=== PATIENT | male | born 1960 | race Caucasian/White ===

== ENCOUNTER 2024-04-04 09:16 | Inpatient (IN) | payer OTHER ==
[~2024-04-04] VITALS: Ht 177.8 cm; Wt 123.0 kg
--- NOTE | 2024-04-04 09:48 | ED.PDOC ---
GI ASSESSMENT HPI Comments 63 year old male brought in by neighbor presents to the ED with chief complaint of abdominal pain and SOB. Patient reports that he has been experiencing diffuse, 10/10 abdominal pain with associated abdominal distention and SOB with exertion for the past month along with nausea and vomiting since yesterday. Patient relays that he has not been seen by a PCP in over a year. Patient states he is currently not able to pass gas. Neighbor notes that the patient called her for help this morning, prompting her to take the patient to the ED for further evaluation. Patient denies any chest pain, dizziness, diarrhea, headache, fever, or chills. Chief Complaint: Shortness of Breath Time Seen by MD: 09:42 Reviewed Notes: Nurses Notes, Medications, Allergies Allergies: Coded Allergies: NO KNOWN ALLERGIES (Unverified , 04/04/24) Information Source: Patient, Friend Mode of Arrival: Ambulatory Timing: Months Duration: Since onset Prehospital treatment: None Quality: Sharp Vomitus: Watery Stool: Normal Severity: Moderate Recent: None Recent Hx of: None Pain Location: Diffuse Modifying Factors: Nothing Associated sign and symptoms: Nausea, Vomiting, Abdominal Pain, Other (SOB) Past Medical History PAST MEDICAL HISTORY: HTN, [place] Surgical History: Denies all surgeries Family History Family History: Reviewed,noncontributory to illness Social History Smoker: Non-Smoker, Quit Greater Than 1 Year Alcohol: Denies ETOH Use Drugs: Denies Drug Use Lives In: Home Constitutional: denies: chills, diaphoresis, fatigue, fever, malaise, sweats, weakness, others EENTM: denies: blurred vision, double vision, ear bleeding, ear discharge, ear drainage, ear pain, ear ringing, eye pain, eye redness, hearing loss, mouth pain, mouth swelling, nasal discharge, nose bleeding, nose congestion, nose pain, photophobia, tearing, throat pain, throat swelling, voice changes, others Respiratory: reports: SOB with excertion; denies: cough, hemoptysis, orthopnea, SOB at rest, shortness of breath, stridor, wheezing, others Cardiovascular: denies: chest pain, dizzy spells, diaphoresis, Dyspnea on exertion, edema, irregular heart beat, left arm pain, lightheadedness, palpitations, PND, syncope, others Gastrointestinal: reports: abdomen distended, abdominal pain, nausea, vomiting; denies: blood streaked bowels, constipated, diarrhea, dysphagia, difficulty swallowing, hematemesis, melena, poor appetite, poor fluid intake, rectal bleeding, rectal pain, others Genitourinary: denies: burning, dysuria, flank pain, frequency, hematuria, incontinence, penile discharge, penile sore, pain, testicle pain, testicle swelling, urgency, others Neurological: denies: dizziness, fainting, headache, left sided numbness, left sided weakness, numbness, paresthesia, pre-existing deficit, right sided numbness, right sided weakness, seizure, speech problems, tingling, tremors, weakness, others Musculoskeletal: denies: back pain, gout, joint pain, joint swelling, muscle pain, muscle stiffness, neck pain, others Integumetry: denies: bruises, change in color, change in hair/nails, dryness, laceration, lesions, lumps, rash, wounds, others Allergic/Immunocompromised: denies: Difficulty Healing, Frequent Infections, Hives, Itching, others Hematologic/Lymphatic: denies: anemia, blood clots, easy bleeding, easy bruising, swollen glands, others Endocrine: denies: excessive hunger, excessive sweating, excessive thirst, excessive urination, flushing, intolerance to cold, intolerance to heat, unexplained weight gain, unexplained weight loss, others Psychiatric: denies: anxiety, bipolar disorder, depression, hopeless, panic disorder, schizophrenia, sleepless, suicidal, others All Other Systems: Reviewed and Negative Physical Exam General Appearance: Moderate Distress, Normal HEENT: Normal ENT Inspection, PERRL/EOMI Neck: Full Range of Motion, Non-Tender, Normal, Normal Inspection Respiratory: Accessory Muscle Use, Chest Non-Tender, Other (Coarse breath sounds) Cardiovascular: Irregular, No Edema, No JVD, No Murmur, No Gallop, Normal Peripheral Pulses, Tachycardia Breast Exam: Deferred Gastrointestinal: No Organomegaly, Non Tender, No Pulsatile Mass, Normal Bowel Sounds, Soft Genitalia: Deferred Pelvic: Deferred Rectal: Deferred Extremities: No calf tenderness, Normal capillary refill, Normal inspection, Normal range of motion, Non-tender, No pedal edema Musculoskeletal : Apperance: Normal Neurologic: Alert, network solutions architect II-XII nml as Tested, No Motor Deficits, Normal Affect, Normal Mood, No Sensory Deficits Cerebellar Function: NOT DONE Reflexes: NOT DONE Skin: Dry, Normal Color, Warm Peripheral Pulses: 3+ Radial (R), 3+ Radial (L) Lymphatic: No Adenopathy Was a procedure done? Was a procedure done?: No GI differential Dx Differential Diagnosis: Constipation, Diverticular disease, Esophagitis, Gastritis/PUD, Gastroenteritis X-Ray, Labs, Meds, VS Vital Signs Date Time Temp Pulse Resp B/P (MAP) Pulse Ox O2 Delivery O2 Flow Rate FiO2 04/04/24 12:45 138 32 141/85 (103) 98 04/04/24 12:31 160/80 04/04/24 12:00 150 04/04/24 10:45 98.1 142 28 160/81 (107) 98 98.1 04/04/24 09:41 142 04/04/24 09:23 97.7 69 28 147/100 (116) 83 Lab Test 04/04/24 12:39 04/04/24 11:49 04/04/24 10:47 Range/Units Blood Gas Specimen Type Arterial Blood Gas Sample Site Right radial Blood Gas Patient Temperature 37.0 Arterial Blood Date Drawn [id number] Arterial Blood pH 7.483 H 7.350-7.450 Arterial Blood Partial Pressure CO2 21.9 L 35.0-48.0 mmHg Arterial Blood Partial Pressure O2 69.9 L 83.0-108.0 mmHg Arterial Blood HCO3 16.1 L 21.0-28.0 mmol/L Arterial Blood Oxygen Saturation 93.9 L 94.0-98.0 % Arterial Blood Base Excess -4.4 L -2.0-3.0 mmol/L Arterial Blood Oxyhemoglobin 93.1 L 94.0-98.0 % Arterial Blood Carboxyhemoglobin 0.3 L 0.5-1.5 % Arterial Blood Methemoglobin 0.6 0.0-1.5 % Jairo Test Yes Blood Gas Total Hemoglobin 18.60 *H 13.5-17.5 g/dL Blood Gas Liter Flow 4.00 Blood Gas Modality Nasal cannula FiO2 % 36.0 Blood Gas Critical Value Read Back yes Blood Gas Notified Whom héctor nolasco md Blood Gas Notified Time [id number] Blood Gas Notified By mone chow rrt White Blood Count 20.5 H 4.4-10.8 10^3/uL Red Blood Count 5.90 4.5-5.90 10^6/uL Hemoglobin 17.7 H 13.5-17.5 g/dL Hematocrit 54.0 H 41.0-53.0 % Mean Corpuscular Volume 91.4 80.0-100.0 fL Mean Corpuscular Hemoglobin 30.0 28.0-32.0 pg Mean Corpuscular Hemoglobin Concent 32.8 32.0-36.0 g/dL Red Cell Distribution Width 14.7 H 11.8-14.3 % Platelet Count 211 140-450 10^3/uL Mean Platelet Volume 9.5 6.9-10.8 fL Neutrophils (%) (Auto) 37.0-80.0 % Lymphocytes (%) (Auto) 10.0-50.0 % Monocytes (%) (Auto) 0.0-12.0 % Basophils (%) (Auto) 0.0-2.0 % Neutrophils # (Auto) 1.6-8.6 10 ^3/uL Lymphocytes # (Auto) 0.4-5.4 10 ^3/uL Monocytes # (Auto) 0-1.3 10 ^3/uL Differential Total Cells Counted 100.0 100 Neutrophils % (Manual) 89 H 37.0-80.0 Band Neutrophils % (Manual) 0 Lymphocytes % (Manual) 3 L 10.0-50.0 Monocytes % (Manual) 8 0-12 Eosinophils % (Manual) 0 0-7 Basophils % (Manual) 0 0.0-2.0 Metamyelocytes % (manual) 0 Myelocytes % (Manual) 0 Promyelocytes % (Manual) 0 Blast Cells % (Manual) 0 Reactive Lymphocytes 0 Platelet Estimate Adequate B-Type Natriuretic Peptide 707.21 0-100 pg/mL Prothrombin Time Pending Prothrombin Time INR Pending Sodium Level 130 L 136-145 mmol/L Potassium Level 4.1 3.5-5.1 mmol/L Chloride Level 93 L 98-107 mmol/L Carbon Dioxide Level 16 L 20-31 mmol/L Anion Gap 21 H 5-15 Blood Urea Nitrogen 76 H 9-23 mg/dL Creatinine 3.97 H 0.700-1.30 mg/dL Glomerular Filtration Rate Calc 16 >90 mL/min BUN/Creatinine Ratio 19.1 10.0-20.0 Serum Glucose 177 H 74-106 mg/dL Calcium Level 9.5 8.7-10.4 mg/dL Total Bilirubin 1.1 H 0.2-1.0 mg/dL Troponin I High Sensitivity 291 *H </=54 ng/L Lipase 27 12-53 U/L Current Medications Medications (Trade) Dose Ordered Sig/Michael Route Start Time Stop Time Status Last Admin Furosemide (Lasix Injection) 40 mg ONCE ONCE IV 04/04/24 12:15 04/04/24 12:16 DC 04/04/24 12:31 Enoxaparin Sodium (Lovenox) 120 mg ONCE ONCE SC 04/04/24 12:30 04/04/24 12:31 DC 04/04/24 12:48 Patient alert. Came in because of abdominal pain shortness a breath. Irregular increased heart rate. Placed on oxygen. Using accessory muscles. EKG reviewed does show atrial fibrillation. Blood pressure elevated. He does not take care himself. Started amiodarone. Possible pneumonitis. Possible CHF. Explained to the patient. Continue cardiac monitoring. Gaston approved inpatient admission [id number]. Time of 1ST Reevaluation: 10:42 Reevaluation 1ST: Unchanged Patient Education/Counseling: Diagnosis, Treatment Family Education/Counseling: Diagnosis, Treatment Additional Information I reviewed the following notes from patient's past medical encounters: None The following tests were ordered, and results were reviewed by me: CBC, BMP, BNP, Troponin, UA, Lipase, Bilirubin, Chest XR I reviewed and agreed with the following test results read by other providers: Chest XR Additional Information was gathered from interviewing the following independent historians: Neighbor I discussed treatment and results with medical personnel and neighbor. Departure 1 Departure Time of Disposition: 10:04 Impression: Primary Impression: Atrial fibrillation with RVR Additional Impressions: Pneumonitis Diastolic heart failure Qualified Codes: I50.33 - Acute on chronic diastolic (congestive) heart failure Disposition: ADMITTED INPATIENT Admit to: Med Surg Condition: Guarded Critical Care Note Critical Care Time?: Yes (90 min-critical care time only) Critical care comment: Placed on oxygen Stability Stability form required: No Heart Score Heart Score: Heart Score Response (Comments) Value History Slightly Suspicious 0 EKG Normal 0 Age 45-64 1 Risk Factors >3 or Hx ASHD 2 Troponin >3 x's Normal limit 2 Total 5 I personally scribed for RUBIA NOLASCO MD ([email or web address]) on 04/04/24 at 09:48. Electronically submitted by Raymond Moreno ([email or web address]). RUBIA NOLASCO MD Apr 04, 2024 09:48
--- NOTE | 2024-04-04 10:09 | ECG ---
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
[2024-04-04 10:45] VITALS: TEMP 98.1
--- NOTE | 2024-04-04 10:54 | DVH ---
CHEST RADIOGRAPH Indication: sob Technique: Single frontal view of the chest was obtained COMPARISON: None FINDINGS: Lines and Tubes: None Lungs: Clear Pleura: No effusion. No pneumothorax. Cardiomediastinal contours: Cardiomegaly Bones: Unremarkable IMPRESSION: Cardiomegaly
[2024-04-04 11:24] LABS: Anion Gap 21 (5-15); Potassium 4.1 mmol/L (3.5-5.1)
[2024-04-04 11:25] LABS: Calcium 9.5 mg/dL (8.7-10.4)
[2024-04-04 11:30] LABS: BUN/Creatinine Ratio 19.1 (10.0-20.0); Lipase 27 U/L (12-53)
[2024-04-04 11:32] LABS: Bilirubin, Total 1.1 mg/dL (0.2-1.0)
[2024-04-04 11:37] LABS: Blood Urea Nitrogen 76 mg/dL (9-23); Carbon Dioxide 16 mmol/L (20-31); Chloride 93 mmol/L (98-107); Glucose 177 mg/dL (74-106); Sodium 130 mmol/L (136-145)
[2024-04-04 12:20] LABS: Hemoglobin 17.7 g/dL (13.5-17.5); Mean Corpuscular Hgb Conc. 32.8 g/dL (32.0-36.0); Mean Corpuscular Volume 91.4 fL (80.0-100.0); Platelet Count (auto) 211 10^3/uL (140-450); Red Cell Distribution Width 14.7 % (11.8-14.3); White Blood Cell 20.5 10^3/uL (4.4-10.8)
[2024-04-04 12:23] LABS: Band Neutrophils % (manual) 0; Basophils % (manual) 0 (0.0-2.0); Blast Cells 0; Eosinophils % (manual) 0 (0-7); Metamyelocytes % 0; Myelocytes % 0; Promyelocytes % 0; Reactive Lymphocytes 0
[2024-04-04] MEDS: FUROSEMIDE 40 MG/4 ML VIAL IV ONE (12:31)
[2024-04-04 12:43] LABS: Base Excess -4.4 mmol/L (-2.0-3.0)
[2024-04-04] MEDS: ENOXAPARIN SOD 120 MG/0.8 ML SYRINGE SC ONE (12:48)
[2024-04-04 12:51] LABS: Lymphocytes % (manual) 3 (10.0-50.0); Monocytes % (manual) 8 (0-12); Platelet Estimate Adequate
[2024-04-04 12:57] VITALS: PULSE 142
[2024-04-04] MEDS ORDERED: MORPHINE SULFATE INJ 2 MG/ml SYRG IV PRN (13:00)
[2024-04-04] MEDS ORDERED: ONDANSETRON HCL 4 MG/2 ML VIAL IV PRN (13:00)
[2024-04-04] MEDS ORDERED: ACETAMINOPHEN 325 MG TAB PO PRN (13:00)
[2024-04-04] MEDS ORDERED: DOCUSATE SOD 100 MG CAP PO PRN (13:00)
[2024-04-04] MEDS ORDERED: HYDROcodone-ACET 5/325MG TAB PO PRN (13:00)
[2024-04-04] MEDS ORDERED: NITROGLYCERIN 0.4 MG SL TAB SL PRN (13:00)
--- NOTE | 2024-04-04 13:16 | DVHHP2 ---
History of Present Illness Reason for Visit: Shortness of breath and abdominal pain History of Present Illness Jim Brantley is a 63-year-old male with past medical history of hypertension and PR, who came in for shortness of breath and abdominal pain. Patient states that he began having abdominal pain and kidney pain last week. His pain was continuing to worsen, he began having nausea, vomiting, and shortness of breath leading him to come to the ER. Patient states he had an PR last year, did not get a stent, was placed on hypertensive medications and sent home. He states he took the medications until they ran out then figured he was good. 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 In ER patient was noted to be in atrial fibrillation with RVR, he is tachypneic, using accessory muscles, and complaining of abdominal pain. CT abdomen was competed and showed patient has a perforated bowel. STAT surgical consult placed. Cardiovascular: HTN, PR Past Surgical History: None Family History: None Smoke: No ALCOHOL: none Drugs: None Lives: Alone Review of Systems Constitutional: No: Fever, Chills, Sweats, Weakness, Malaise, Other Eyes: No: Pain, Vision change, Conjunctivae inflammation, Eyelid inflammation, Other, Redness ENT: No: Ear pain, Ear discharge, Nose pain, Nose discharge, Nose congestion, Mouth pain, Mouth swelling, Throat pain, Throat swelling, Other Respiratory: Shortness of breath, SOB with excertion; No: Cough, Dry, Wheezing, Hemoptysis, Pleuritic Pain, Sputum, Wheezing, Other Cardiovascular: No: Chest Pain, Palpitations, Orthopnea, Paroxysmal Noc. Dyspnea, Edema, Lt Headedness, Other Gastrointestinal: Nausea, Vomiting, Abdominal Pain; No: Diarrhea, Constipation, Melena, Hematochezia, Other Genitourinary: No Dysuria, No Frequency, No Incontinence, No Hematuria, No Retention, No Other Musculoskeletal: No: other, neck pain, shoulder pain, arm pain, back pain, hand pain, leg pain, foot pain Skin: No: Rash, Lesions, Jaundice, Bruising, Other Neurological: No: Weakness, Numbness, Incoordination, Change in speech, Confusion, Seizures, Other Allergies: Coded Allergies: NO KNOWN ALLERGIES (Unverified , 04/04/24) Medications Current Medications Medications Dose Ordered Sig/Michael Route Start Time Stop Time Status Last Admin Dose Admin Sodium Chloride 10 ml Q8HR IV 04/04/24 14:00 UNV Acetaminophen/ Hydrocodone Bitart 1 tab Q4HP PRN PO 04/04/24 13:00 UNV Ondansetron HCl 4 mg Q4HP PRN IV 04/04/24 13:00 UNV Docusate Sodium 100 mg BIDPRN PRN PO 04/04/24 13:00 UNV Acetaminophen 650 mg Q6HP PRN PO 04/04/24 13:00 UNV Nitroglycerin 0.4 mg Q5MINP PRN SL 04/04/24 13:00 UNV Morphine Sulfate 2 mg Q30M PRN IV 04/04/24 13:00 UNV Exam Vital Signs Vital Signs Date Time Temp Pulse Resp B/P (MAP) Pulse Ox O2 Delivery O2 Flow Rate FiO2 04/04/24 12:31 160/80 04/04/24 12:00 150 04/04/24 10:45 98.1 28 98 98.1 General Appearance: Alert, Oriented X3, Cooperative, moderate distress HEENT: Atraumatic, PERRLA Respiratory: Other (Tachypneic, using accessory muscles) Cardiovascular: No murmurs, Other (A-Fib with RVR) Abdominal: Normal bowel sounds, Soft Extremities: No clubbing, No cyanosis, No edema, Normal pulses Skin: No rashes, No breakdown, No significant lesion Neuro: Normal gait, Normal speech, Strength at 5/5 X4 ext Psych/Mental Status: Mental status NL, Mood NL Labs/Xrays Labs Test 04/04/24 12:39 04/04/24 11:49 04/04/24 10:47 Range/Units Blood Gas Specimen Type Arterial Blood Gas Sample Site Right radial Blood Gas Patient Temperature 37.0 Arterial Blood Date Drawn [id number] Arterial Blood pH 7.483 H 7.350-7.450 Arterial Blood Partial Pressure CO2 21.9 L 35.0-48.0 mmHg Arterial Blood Partial Pressure O2 69.9 L 83.0-108.0 mmHg Arterial Blood HCO3 16.1 L 21.0-28.0 mmol/L Arterial Blood Oxygen Saturation 93.9 L 94.0-98.0 % Arterial Blood Base Excess -4.4 L -2.0-3.0 mmol/L Arterial Blood Oxyhemoglobin 93.1 L 94.0-98.0 % Arterial Blood Carboxyhemoglobin 0.3 L 0.5-1.5 % Arterial Blood Methemoglobin 0.6 0.0-1.5 % Jairo Test Yes Blood Gas Total Hemoglobin 18.60 *H 13.5-17.5 g/dL Blood Gas Liter Flow 4.00 Blood Gas Modality Nasal cannula FiO2 % 36.0 Blood Gas Critical Value Read Back yes Blood Gas Notified Whom héctor nolasco md Blood Gas Notified Time [id number] Blood Gas Notified By mone chow rrt White Blood Count 20.5 H 4.4-10.8 10^3/uL Red Blood Count 5.90 4.5-5.90 10^6/uL Hemoglobin 17.7 H 13.5-17.5 g/dL Hematocrit 54.0 H 41.0-53.0 % Mean Corpuscular Volume 91.4 80.0-100.0 fL Mean Corpuscular Hemoglobin 30.0 28.0-32.0 pg Mean Corpuscular Hemoglobin Concent 32.8 32.0-36.0 g/dL Red Cell Distribution Width 14.7 H 11.8-14.3 % Platelet Count 211 140-450 10^3/uL Mean Platelet Volume 9.5 6.9-10.8 fL Neutrophils (%) (Auto) 37.0-80.0 % Lymphocytes (%) (Auto) 10.0-50.0 % Monocytes (%) (Auto) 0.0-12.0 % Basophils (%) (Auto) 0.0-2.0 % Neutrophils # (Auto) 1.6-8.6 10 ^3/uL Lymphocytes # (Auto) 0.4-5.4 10 ^3/uL Monocytes # (Auto) 0-1.3 10 ^3/uL Differential Total Cells Counted 100.0 100 Neutrophils % (Manual) 89 H 37.0-80.0 Band Neutrophils % (Manual) 0 Lymphocytes % (Manual) 3 L 10.0-50.0 Monocytes % (Manual) 8 0-12 Eosinophils % (Manual) 0 0-7 Basophils % (Manual) 0 0.0-2.0 Metamyelocytes % (manual) 0 Myelocytes % (Manual) 0 Promyelocytes % (Manual) 0 Blast Cells % (Manual) 0 Reactive Lymphocytes 0 Platelet Estimate Adequate B-Type Natriuretic Peptide 707.21 0-100 pg/mL Sodium Level 130 L 136-145 mmol/L Potassium Level 4.1 3.5-5.1 mmol/L Chloride Level 93 L 98-107 mmol/L Carbon Dioxide Level 16 L 20-31 mmol/L Anion Gap 21 H 5-15 Blood Urea Nitrogen 76 H 9-23 mg/dL Creatinine 3.97 H 0.700-1.30 mg/dL Glomerular Filtration Rate Calc 16 >90 mL/min BUN/Creatinine Ratio 19.1 10.0-20.0 Serum Glucose 177 H 74-106 mg/dL Calcium Level 9.5 8.7-10.4 mg/dL Total Bilirubin 1.1 H 0.2-1.0 mg/dL Troponin I High Sensitivity 291 *H </=54 ng/L Lipase 27 12-53 U/L CHEST RADIOGRAPH COMPARISON: None FINDINGS: Lines and Tubes: None Lungs: Clear Pleura: No effusion. No pneumothorax. Cardiomediastinal contours: Cardiomegaly Bones: Unremarkable IMPRESSION: Cardiomegaly Procedure: CT CT AB PEL WO CON-NO ORAL OR IV 04/04/2024 01:11 PM FINDINGS: Lower Chest: Unremarkable. Hepatobiliary: Unremarkable. Spleen: Unremarkable. Pancreas: Unremarkable. Adrenal Glands: Unremarkable. tract: The kidneys are normal in size bilaterally without hydronephrosis or nephrolithiasis. The urinary bladder is unremarkable. GI tract: The stomach is grossly normal in appearance. No evidence of small bowel obstruction. Sigmoid diverticulosis with evidence of ruptured diverticulitis. Moderate amount of pneumoperitoneum noted in the left lower quadrant extending to the upper abdomen and under the diaphragms. Extensive pericolonic fat stranding in the left lower quadrant noted. No free intraperitoneal air. Small amount of fluid is seen in the lower abdomen . The appendix is not visualized. No inflammatory change is noted in the right lower quadrant. Lymphatics: No mesenteric, retroperitoneal or periportal lymphadenopathy. Vasculature: The abdominal aorta is normal in in caliber. Pelvic Organs: Prostate is mildly enlarged. Bones/soft tissues: No acute abnormality. Degenerative changes of the lumbar spine noted. Small fat-containing umbilical hernia. Other: None. IMPRESSION: 1. Perforated sigmoid diverticulitis with moderate amount of pneumoperitoneum. Recommend surgical consultation. No evidence of abscess formation at this time. 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 Procedure Category Date Status Time Admit ADMIT 04/04/24 Transmitted 12:56 Code Status CODE 04/04/24 Transmitted 12:56 Sodium Chloride Lock PHA 04/04/24 Logged (Saline Lock Ns) 14:00 Hydrocodone-Acet PHA 04/04/24 Logged 5/325mg Tab ([place] 13:00 Ondansetron Hcl PHA 04/04/24 Logged (Zofran) 13:00 Docusate Sodium PHA 04/04/24 Logged Capsule (Colace 13:00 Complete Blood Count LAB 04/05/24 Verified 04:00 Comprehensive LAB 04/05/24 Verified Metabolic Panel 04:00 Cardiac DIET 04/04/24 Transmitted Diet-2gna,Lofat,Lochol Lunch Echo 2d Mode Cardiac US 04/04/24 Logged DOP 12:56 Condition: Serious BORIS 04/04/24 In Process 12:56 Acetaminophen Tablet PHA 04/04/24 Logged (Tylenol Tablet) 13:00 Nitroglycerin PHA 04/04/24 Logged Sublingual (Ntrostat 13:00 Morphine Sulfate PHA 04/04/24 Logged Injection 13:00 Stat Ekg For Chest BORIS 04/04/24 In Process Pain 12:56 Notify Md Of Changes [facility] 04/04/24 In Process From Base 12:56 Anode Adjuster For BORIS 04/04/24 In Process 24 Hours 12:56 Emergency Dysrhythmia BORIS 04/04/24 In Process Protocol 12:56 Rhythm Strips Once [facility] 04/04/24 In Process Every Shift 12:56 Oxygen By Nasal RT 04/04/24 Transmitted Cannula 12:56 Amiodarone Bolus Kit PHA 04/04/24 Logged (Cordarone) 13:15 Amiodarone PHA 04/04/24 Logged 360mg/200ml Premix 13:15 Amiodarone PHA 04/04/24 Logged 360mg/200ml Premix 19:15 * Cardiology Consult CONS 04/04/24 Transmitted 13:01 Date of Service: Apr 04, 2024 Billing Provider: JAXSON PARIKH Common Visit Codes: [id number] INP/OBS CARE (HIGH) JAXSON PARIKH Apr 04, 2024 13:16
--- NOTE | 2024-04-04 13:41 | DVH ---
Procedure: CT CT AB PEL WO CON-NO ORAL OR IV 04/04/2024 01:11 PM Indication: colitisvsdiverticulitis Comparison Study: None Technique: Axial images were obtained and reformatted in coronal and sagittal planes. All CT scans at this medical facility are performed using dose modulation techniques as appropriate t o a performed exam including the following: Automated exposure control was utilized; adjustment of th e MA and/or KV according to patient size; and use of iterative reconstruction technique. CT Dose: CTDI volume is 27.14 mGy. Dose-length product is 1518.49 mGy*cm FINDINGS: Lower Chest: Unremarkable. Hepatobiliary: Unremarkable. Spleen: Unremarkable. Pancreas: Unremarkable. Adrenal Glands: Unremarkable. tract: The kidneys are normal in size bilaterally without hydronephrosis or nephrolithiasis. The urinary bladder is unremarkable. GI tract: The stomach is grossly normal in appearance. No evidence of small bowel obstruction. Sigmoi d diverticulosis with evidence of ruptured diverticulitis. Moderate amount of pneumoperitoneum noted in the left lower quadrant extending to the upper abdomen and under the diaphragms. Extensive bibi lonic fat stranding in the left lower quadrant noted. No free intraperitoneal air. Small amount of fl uid is seen in the lower abdomen . The appendix is not visualized. No inflammatory change is noted in the right lower quadrant. Lymphatics: No mesenteric, retroperitoneal or periportal lymphadenopathy. Vasculature: The abdominal aorta is normal in in caliber. Pelvic Organs: Prostate is mildly enlarged. Bones/soft tissues: No acute abnormality. Degenerative changes of the lumbar spine noted. Small fat-c ontaining umbilical hernia. Other: None. IMPRESSION: 1. Perforated sigmoid diverticulitis with moderate amount of pneumoperitoneum. Recommend surgical con sultation. No evidence of abscess formation at this time. Critical Result: Bowel perforation Findings discussed with , at 04/04/2024 01:39 PM, and acknowledged receipt and understanding of the f indings. ..
[2024-04-04] MEDS: cefTRIAXone 1GM/50ML D5W 50 ML IV ONE (13:57)
[2024-04-04] MEDS: AMIODARONE BOLUS KIT 100 ML IV ONE (14:07)
[2024-04-04 14:32] LABS: INR 1.2 (0.9-1.15); Prothrombin Time 12.5 sec (9.3-11.8)
[2024-04-04] MEDS: SODIUM CHLOR 0.9% PF (SALINE LOCK) 10ML VIAL/SYR IV SCH (14:37)
[2024-04-04] MEDS: AMIODARONE 360mg/200mL PREMIX 200 ML IV ONE (14:49)
--- NOTE | 2024-04-04 15:10 | DVHINCON2 ---
Date of service: Apr 04, 2024 History of Present Illness 63 yo M obesity, hx of AFib, goes to [place], previous MT but unclear specifics admitted for sob and found to have perforation in abdomen. per ER MD, pt will get surgical eval. ecg showed afib rvr. pt getting cvc line now. Past Medical History reviewed Allergies: Coded Allergies: NO KNOWN ALLERGIES (Unverified , 04/04/24) Current Medications Current Medications Medications (Trade) Dose Ordered Sig/Michael Route PRN Reason Start Time Stop Time Status Last Admin Sodium Chloride (Saline Lock Ns) 10 ml Q8HR IV 04/04/24 14:00 04/04/24 14:37 Acetaminophen/ Hydrocodone Bitart ([place] 5/325MG Tab) 1 tab Q4HP PRN PO MODERATE PAIN (4-6 PAIN SCALE) 04/04/24 13:00 Ondansetron HCl (Zofran) 4 mg Q4HP PRN IV NAUSEA / VOMITING 04/04/24 13:00 Docusate Sodium (Colace Capsule) 100 mg BIDPRN PRN PO FOR CONSTIPATION 04/04/24 13:00 Acetaminophen (Tylenol Tablet) 650 mg Q6HP PRN PO PAIN SCALE 1-3 OR TEMP>100.4 04/04/24 13:00 Nitroglycerin (Ntrostat Sublingual) 0.4 mg Q5MINP PRN SL FOR CHEST PAIN 04/04/24 13:00 Morphine Sulfate 2 mg Q30M PRN IV FOR CHEST PAIN 04/04/24 13:00 Metronidazole 100 ml @ 100 mls/hr Q8HR IV 04/04/24 14:00 Metronidazole 100 ml @ 100 mls/hr Q8HR IV 04/04/24 22:00 UNV Ceftriaxone Sodium 50 ml @ 100 mls/hr DAILY@09 IV 04/05/24 09:00 UNV Review of Systems not obtained Vital Signs Vital Signs Date Time Temp Pulse Resp B/P (MAP) Pulse Ox O2 Delivery O2 Flow Rate FiO2 04/04/24 12:57 142 Nasal Cannula* 3 32 04/04/24 12:45 32 141/85 (103) 98 04/04/24 10:45 98.1 98.1 Physical Exam not examined, pt getting procedure by ER staff Labs/Diagnostic Data Labs Test 04/04/24 12:39 04/04/24 11:49 04/04/24 10:47 Range/Units Blood Gas Specimen Type Arterial Blood Gas Sample Site Right radial Blood Gas Patient Temperature 37.0 Arterial Blood Date Drawn [id number] Arterial Blood pH 7.483 H 7.350-7.450 Arterial Blood Partial Pressure CO2 21.9 L 35.0-48.0 mmHg Arterial Blood Partial Pressure O2 69.9 L 83.0-108.0 mmHg Arterial Blood HCO3 16.1 L 21.0-28.0 mmol/L Arterial Blood Oxygen Saturation 93.9 L 94.0-98.0 % Arterial Blood Base Excess -4.4 L -2.0-3.0 mmol/L Arterial Blood Oxyhemoglobin 93.1 L 94.0-98.0 % Arterial Blood Carboxyhemoglobin 0.3 L 0.5-1.5 % Arterial Blood Methemoglobin 0.6 0.0-1.5 % Jairo Test Yes Blood Gas Total Hemoglobin 18.60 *H 13.5-17.5 g/dL Blood Gas Liter Flow 4.00 Blood Gas Modality Nasal cannula FiO2 % 36.0 Blood Gas Critical Value Read Back yes Blood Gas Notified Whom héctor nolasco md Blood Gas Notified Time [id number] Blood Gas Notified By mone chow rrt White Blood Count 20.5 H 4.4-10.8 10^3/uL Red Blood Count 5.90 4.5-5.90 10^6/uL Hemoglobin 17.7 H 13.5-17.5 g/dL Hematocrit 54.0 H 41.0-53.0 % Mean Corpuscular Volume 91.4 80.0-100.0 fL Mean Corpuscular Hemoglobin 30.0 28.0-32.0 pg Mean Corpuscular Hemoglobin Concent 32.8 32.0-36.0 g/dL Red Cell Distribution Width 14.7 H 11.8-14.3 % Platelet Count 211 140-450 10^3/uL Mean Platelet Volume 9.5 6.9-10.8 fL Neutrophils (%) (Auto) 37.0-80.0 % Lymphocytes (%) (Auto) 10.0-50.0 % Monocytes (%) (Auto) 0.0-12.0 % Basophils (%) (Auto) 0.0-2.0 % Neutrophils # (Auto) 1.6-8.6 10 ^3/uL Lymphocytes # (Auto) 0.4-5.4 10 ^3/uL Monocytes # (Auto) 0-1.3 10 ^3/uL Differential Total Cells Counted 100.0 100 Neutrophils % (Manual) 89 H 37.0-80.0 Band Neutrophils % (Manual) 0 Lymphocytes % (Manual) 3 L 10.0-50.0 Monocytes % (Manual) 8 0-12 Eosinophils % (Manual) 0 0-7 Basophils % (Manual) 0 0.0-2.0 Metamyelocytes % (manual) 0 Myelocytes % (Manual) 0 Promyelocytes % (Manual) 0 Blast Cells % (Manual) 0 Reactive Lymphocytes 0 Platelet Estimate Adequate B-Type Natriuretic Peptide 707.21 0-100 pg/mL Prothrombin Time 12.5 H 9.3-11.8 sec Prothrombin Time INR 1.20 H 0.9-1.15 Sodium Level 130 L 136-145 mmol/L Potassium Level 4.1 3.5-5.1 mmol/L Chloride Level 93 L 98-107 mmol/L Carbon Dioxide Level 16 L 20-31 mmol/L Anion Gap 21 H 5-15 Blood Urea Nitrogen 76 H 9-23 mg/dL Creatinine 3.97 H 0.700-1.30 mg/dL Glomerular Filtration Rate Calc 16 >90 mL/min BUN/Creatinine Ratio 19.1 10.0-20.0 Serum Glucose 177 H 74-106 mg/dL Calcium Level 9.5 8.7-10.4 mg/dL Total Bilirubin 1.1 H 0.2-1.0 mg/dL Troponin I High Sensitivity 291 *H </=54 ng/L Lipase 27 12-53 U/L Assessment afib rvr perforated abdomen morbid obesity nstemi FRANK/ renal failure hyponatremia Plan/Recommendation BP is stable amio gtt at this time if pt needs emergency surgery, proceed without any further cv workup , defer to surgical team will plan for 2d echo elevated cva risk , iv digoxin x 1 lovenox given x1 40 mins critical care time spent Plan discussed with: Patient, Other JESSE CAMACHO MD Apr 04, 2024 15:10
--- NOTE | 2024-04-04 15:20 | DVHSR ---
APPROVED REPORT EXAM: Two-dimensional and M-mode echocardiogram with Doppler and color Doppler. Blood Pressure: 160/80 mmHg INDICATION New AFIB with RVR RISK FACTORS Height: 70, Weight: 271 DIMENSIONS LVDd3.3 (3.8-5.7cm)LA (2D)5.0 (1.9-4.0cm)Aortic Root3.8 (2.0-3.7cm) LVDs2.5 (2.5-4.0cm)LA (MM) (1.9-4.0cm)Aortic Cusp Exc1.8 (1.5-2.0cm) EF (%) 50.0 (55-70%)Rt. Atrium5.1 (1.9-4.0cm)Asc. Aorta cm Mitral Valve MitralMitral Stenosis E wave0.61m/sMV Mean GR.mmHg E/A ratio0.02D MVAcm2 Aortic Valve Aortic ValveAortic Stenosis V10.78m/Charli Mean GR.2mmHg V20.96m/Charli Peak GR.4mmHg LVOT Diameter1.9 (1.8-2.4cm)Doppler AVA2.30cm2 Tricuspid Valve TR Velocity3.16m/s [id number] Other Information Technically limited study due to body habitus, patient position and patients high heart rate. Conclusion lvef 20-25% by visual estimated severe LVH HR 140s during study , decreases overall sensitivity of study LV dialted RV markedly dilated with dysfuntion severe biatrial enlargement trivail pericardial effusion
--- NOTE | 2024-04-04 15:43 | DVH ---
CHEST RADIOGRAPH Indication: s/p central line and ng tube placement Technique: Single frontal view of the chest was obtained Comparison: XY CHEST PORTABLE on DOS: 04/04/24 FINDINGS: Lines and Tubes: Right central venous catheter with tip svc. NG tube in stomach. Lungs: No focal consolidation. Pleura: No effusion. No pneumothorax. Cardiomediastinal contours: Unremarkable Bones: No acute osseous abnormality. IMPRESSION: No acute cardiopulmonary disease.
[2024-04-04] MEDS: metroNIDAZOLE 500MG/100ML 100 ML IV SCH (15:57)
[2024-04-04 17:00] VITALS: O2SAT 84
[2024-04-04] MEDS: ONDANSETRON HCL 4 MG/2 ML VIAL IV ONE (17:01)
[2024-04-04 17:02] VITALS: BP 116/98; PULSE 133; RESP 30
[2024-04-04] MEDS: MORPHINE SULFATE 4 MG/ML SYR/VIAL IV ONE (17:02)
--- NOTE | 2024-04-04 17:13 | DVHNC2 ---
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: Other (Resident) Indication: Volume resuscitation, Inability to obtain IV Room prepared for procedure: Yes Speech/Language Therapist performed hand hygien: Yes Maximal sterile barrier precau: Mask/Eye shield, Sterile gown, Cap, Sterlie gloves, Large sterlie drape Skin Preparation: Providine iodine Skin preparation completely dr: Yes Insertion site: Right, Internal jugular, Line secured Central line catheter type: Ktd-ldifdtcd-maj dialysis Number of lumens: 3 Central line exchanged over a: No Antiseptic ointment applied to: Yes Post Assessment: Chest X-Ray Informed consent obtained: Yes Risks/benefits/alt described: Yes UTO Consent Procedure supervised by Dr. Ulrich Date of Service: Apr 04, 2024 Billing Provider: RUBIA ULRICH MD Common Visit Codes: PROCEDURE ONLY Procedure Codes: 53932-KPAWUU NON-TUNNEL CV CATH MISHA MASCORRO RESIDENT Apr 04, 2024 17:13
[2024-04-04] MEDS: dilTIAZem 25 MG/5 ML VIAL IV ONE (18:15)
[2024-04-04] MEDS: dilTIAZem HCL 50 MG/10 ML VIAL IV ONE (18:30)
[2024-04-04] MEDS ORDERED: SUCCINYLCHOLINE CHLORIDE 20 MG/ML 10ML VIAL IV ONE (18:35)
[2024-04-04] MEDS ORDERED: fentaNYL CITRATE 100 MCG/2 ML VL ONE ×2 (18:41→20:24)
--- NOTE | 2024-04-04 19:01 | DVHINCON2 ---
Date of service: Apr 04, 2024 Allergies: Coded Allergies: NO KNOWN ALLERGIES (Unverified , 04/04/24) Current Medications Current Medications Medications (Trade) Dose Ordered Sig/Michael Route PRN Reason Start Time Stop Time Status Last Admin Sodium Chloride (Saline Lock Ns) 10 ml Q8HR IV 04/04/24 14:00 04/04/24 14:37 Acetaminophen/ Hydrocodone Bitart ([place] 5/325MG Tab) 1 tab Q4HP PRN PO MODERATE PAIN (4-6 PAIN SCALE) 04/04/24 13:00 Ondansetron HCl (Zofran) 4 mg Q4HP PRN IV NAUSEA / VOMITING 04/04/24 13:00 Docusate Sodium (Colace Capsule) 100 mg BIDPRN PRN PO FOR CONSTIPATION 04/04/24 13:00 Acetaminophen (Tylenol Tablet) 650 mg Q6HP PRN PO PAIN SCALE 1-3 OR TEMP>100.4 04/04/24 13:00 Nitroglycerin (Ntrostat Sublingual) 0.4 mg Q5MINP PRN SL FOR CHEST PAIN 04/04/24 13:00 Morphine Sulfate 2 mg Q30M PRN IV FOR CHEST PAIN 04/04/24 13:00 Metronidazole 100 ml @ 100 mls/hr Q8HR IV 04/04/24 14:00 04/04/24 15:57 Metronidazole 100 ml @ 100 mls/hr Q8HR IV 04/04/24 22:00 04/04/24 16:29 DC Ceftriaxone Sodium 50 ml @ 100 mls/hr DAILY@09 IV 04/05/24 09:00 Vital Signs Vital Signs Date Time Temp Pulse Resp B/P (MAP) Pulse Ox O2 Delivery O2 Flow Rate FiO2 04/04/24 17:02 133 30 116/98 04/04/24 17:00 84 04/04/24 12:57 Nasal Cannula* 3 32 04/04/24 10:45 98.1 98.1 Labs/Diagnostic Data Labs Test 04/04/24 15:30 04/04/24 12:39 04/04/24 11:49 04/04/24 10:47 Range/Units Lactic Acid Level 3.0 *H 0.4-2.0 mmol/L Blood Gas Specimen Type Arterial Blood Gas Sample Site Right radial Blood Gas Patient Temperature 37.0 Arterial Blood Date Drawn [id number] Arterial Blood pH 7.483 H 7.350-7.450 Arterial Blood Partial Pressure CO2 21.9 L 35.0-48.0 mmHg Arterial Blood Partial Pressure O2 69.9 L 83.0-108.0 mmHg Arterial Blood HCO3 16.1 L 21.0-28.0 mmol/L Arterial Blood Oxygen Saturation 93.9 L 94.0-98.0 % Arterial Blood Base Excess -4.4 L -2.0-3.0 mmol/L Arterial Blood Oxyhemoglobin 93.1 L 94.0-98.0 % Arterial Blood Carboxyhemoglobin 0.3 L 0.5-1.5 % Arterial Blood Methemoglobin 0.6 0.0-1.5 % Jairo Test Yes Blood Gas Total Hemoglobin 18.60 *H 13.5-17.5 g/dL Blood Gas Liter Flow 4.00 Blood Gas Modality Nasal cannula FiO2 % 36.0 Blood Gas Critical Value Read Back yes Blood Gas Notified Whom héctor nolasco md Blood Gas Notified Time [id number] Blood Gas Notified By mone chow rrt White Blood Count 20.5 H 4.4-10.8 10^3/uL Red Blood Count 5.90 4.5-5.90 10^6/uL Hemoglobin 17.7 H 13.5-17.5 g/dL Hematocrit 54.0 H 41.0-53.0 % Mean Corpuscular Volume 91.4 80.0-100.0 fL Mean Corpuscular Hemoglobin 30.0 28.0-32.0 pg Mean Corpuscular Hemoglobin Concent 32.8 32.0-36.0 g/dL Red Cell Distribution Width 14.7 H 11.8-14.3 % Platelet Count 211 140-450 10^3/uL Mean Platelet Volume 9.5 6.9-10.8 fL Neutrophils (%) (Auto) 37.0-80.0 % Lymphocytes (%) (Auto) 10.0-50.0 % Monocytes (%) (Auto) 0.0-12.0 % Basophils (%) (Auto) 0.0-2.0 % Neutrophils # (Auto) 1.6-8.6 10 ^3/uL Lymphocytes # (Auto) 0.4-5.4 10 ^3/uL Monocytes # (Auto) 0-1.3 10 ^3/uL Differential Total Cells Counted 100.0 100 Neutrophils % (Manual) 89 H 37.0-80.0 Band Neutrophils % (Manual) 0 Lymphocytes % (Manual) 3 L 10.0-50.0 Monocytes % (Manual) 8 0-12 Eosinophils % (Manual) 0 0-7 Basophils % (Manual) 0 0.0-2.0 Metamyelocytes % (manual) 0 Myelocytes % (Manual) 0 Promyelocytes % (Manual) 0 Blast Cells % (Manual) 0 Reactive Lymphocytes 0 Platelet Estimate Adequate B-Type Natriuretic Peptide 707.21 0-100 pg/mL Prothrombin Time 12.5 H 9.3-11.8 sec Prothrombin Time INR 1.20 H 0.9-1.15 Sodium Level 130 L 136-145 mmol/L Potassium Level 4.1 3.5-5.1 mmol/L Chloride Level 93 L 98-107 mmol/L Carbon Dioxide Level 16 L 20-31 mmol/L Anion Gap 21 H 5-15 Blood Urea Nitrogen 76 H 9-23 mg/dL Creatinine 3.97 H 0.700-1.30 mg/dL Glomerular Filtration Rate Calc 16 >90 mL/min BUN/Creatinine Ratio 19.1 10.0-20.0 Serum Glucose 177 H 74-106 mg/dL Calcium Level 9.5 8.7-10.4 mg/dL Total Bilirubin 1.1 H 0.2-1.0 mg/dL Troponin I High Sensitivity 291 *H </=54 ng/L Lipase 27 12-53 U/L Assessment [id number] ACUTE RUPTURED SIGMOID DIVERTICULITIS EMERGENT E ALP WITH BOWEL RESECTION POSSIBLE COLOSTOMY CARDIAC EVAL DONE HIGH RISK FOR SURGERY WITH POTENTIAL FOR COMPLICATIONS PT UNDERSTANDS AND CONSENTS Plan discussed with: Patient JAYSHREE DONOVAN MD Apr 04, 2024 19:01
[2024-04-04] MEDS ORDERED: AMIODARONE 360mg/200mL PREMIX 200 ML IV SCH (19:15)
--- NOTE | 2024-04-04 19:19 | DVHINCON2 ---
DATE OF CONSULTATION: 04/04/2024 HISTORY OF PRESENT ILLNESS: This patient is 63-year-old, seen by me in the Emergency Room with significant abdominal pain, some nausea, and shortness of breath. No hematemesis or melena. No bleeding per rectum. He had this pain off-and-on, but this time was a severe, so he came to the Emergency Room and I was asked to see him. PAST MEDICAL HISTORY: Hypertension and recent CO. PAST SURGICAL HISTORY: Nothing significant. PHYSICAL EXAMINATION: VITAL SIGNS: On examination, afebrile, stable signs. HEENT: No evidence of pallor, cyanosis, or jaundice. NECK: Supple, nontender with no thyromegaly, lymphadenopathy. CHEST AND LUNGS: Clear. HEART: Within normal limits. ABDOMEN: Soft, distended, tender in the lower abdomen with rebound. EXTREMITIES: Unremarkable. NEUROLOGIC: Not assessed. CLINICAL IMPRESSION: Acute abdomen with a possibility of a ruptured sigmoid colon, secondary to diverticulitis and presence of pneumoperitoneum. PLAN: The plan will be to consider emergent exploratory laparotomy with bowel resection, possible colostomy, and Cardiac evaluation has been done and he is high risk for surgery. MD NUNU Henao/SOPHIA TID: [id number] RECEIPT: [id number] cc: JAXSON PARIKH
[2024-04-04] MEDS ORDERED: MIDAZOLAM HCL 2MG/2ML 2ml VIAL (1mg/ml) ONE ×2 (19:44→21:19)
[2024-04-04] MEDS ORDERED: PHENYLEPHRINE HCL 10 MG/ML VL ONE (20:00)
[2024-04-04] MEDS ORDERED: ePHEDrine SULFATE 50 MG/ML AMP ONE (20:09)
[2024-04-04] MEDS ORDERED: ROCURONIUM 10MG/ML 10ML VIAL IV ONE ×2 (20:20→20:44)
[2024-04-04] MEDS ORDERED: ceFAZolin 1GM VL ONE (20:40)
[2024-04-04] MEDS ORDERED: NOREPINEPHRINE 8 MG/250ML KIT 250 ML IV ONE (20:54)
[2024-04-04] MEDS ORDERED: metroNIDAZOLE 500MG/100ML 100 ML IV SCH (22:00)
[2024-04-04] MEDS ORDERED: ESMOLOL HCL 10 ML IV ONE (22:03)
[2024-04-04] MEDS ORDERED: EPINEPHrine HCL 1 MG/1 ML AMP ONE (22:17)
--- NOTE | 2024-04-04 22:24 | DVHOP2 ---
Operative Report [id number] PERFORATED SIGMOID DIVERTICULITIS WITH INTRAABD ABSCESS PERITONITIS E LAP DRAINAGE OF INTRAABD ABSCESS LYSIS OF ADHESIONS SIGMOID RESECTION, END COLOSTOMY, YANEZ CLOSURE EBL 100 CC ONE DRAIN NO COMPLICATIONS CRITICAL CONDITION POOR PROGNOSIS JAYSHREE DONOVAN MD Apr 04, 2024 22:24
[2024-04-04] MEDS ORDERED: DOPamine 1600MCG/ML D5W 250 ML IV ONE (22:26)
[2024-04-04] MEDS ORDERED: EPINEPHrine HCL 250 ML IV ONE (22:26)
[2024-04-04] MEDS ORDERED: ATROPINE SULF 1 MG/10ml SYR IV ONE (22:34)
--- NOTE | 2024-04-04 22:44 | DVHOP ---
DATE OF SURGERY: 04/04/2024 PREOPERATIVE DIAGNOSES: Intra-abdominal sepsis, bowel perforation, sigmoid diverticulitis. POSTOPERATIVE DIAGNOSES: Intra-abdominal sepsis, bowel perforation, sigmoid diverticulitis. PROCEDURES: Exploratory laparotomy with lysis of dense adhesions, drainage of intraabdominal abscess, sigmoid resection and end colostomy, Ron's closure. SURGEON: Wilfred Lilly MD ELEMENTARY MATH TUTOR: Bebo Fajardo MD. ANESTHESIA: General. ESTIMATED BLOOD LOSS: Close to 100 mL. DRAIN: one drain was used. COMPLICATIONS: No complications were encountered. DESCRIPTION OF PROCEDURE: The patient was prepped and draped in the usual sterile fashion in the supine position and a vertical midline incision was applied going to the right of the umbilicus, was taken down to the deeper tissues, going up to the symphysis pubis and supraumbilically and the abdomen was entered. Brando pus was obtained. Cultures were sent. He had peritonitis and there was a rupture of the sigmoid colon in the mid portion and decision was made to do a sigmoid resection. He remained hemodynamically labile on vasopressor support. Also, but there was no cardiac event. His ejection fraction was very low as well preoperatively and he was high risk for surgery. The potential complications and the sigmoid colon was identified. Adhesions were taken down. The entire small bowel was examined as well from the DJ flexure down to the ileum. There were no issues noted with that and then a suitable spot was selected in the descending colon just above the sigmoid colon was transected using the MARYCHUY stapling device and a suitable spot was selected in the rectosigmoid location. It was transected using the MARYCHUY stapling device. The mesenteric vessels were taken down using the LigaSure device and clips were applied at various locations for safety and the ureters were kept out of harm's at all times. The specimen was released in this fashion was submitted for pathology. The distal margin was secured with a silk suture and the left lower quadrant, the colostomy was created and a thorough irrigation of the entire bowel was carried out. The surgical incision was applied in the left lower quadrant to allow the colostomy to be delivered out. The descending colon was released from the paracolic gutter using the LigaSure device and this allowed the colostomy to be brought out from the left lower quadrant. The fascia was divided in a cruciate fashion to end the staple line, the descending colon was delivered out. With this being done, sponge count, needle count was reported correct. The small bowel was replaced back into the abdomen in its anatomic location and the sponge count, needle count was reported correct. The fascia was brought together using PDS suture. Skin was brought together using a stapling device and then the dressing was applied, and the ostomy was matured. The staple line was taken down. The mucosal edges were brought together to the skin using 3-0 Vicryl suture in interrupted fashion and the serosal tissue also was sutured to the fascia in all 4 quadrants to prevent the colostomy to be retracted. He is morbidly obese so difficult to do this, but it was essentially done. The ostomy was viable at the end of the operation and he remained hemodynamically labile on vasopressor support and his condition was critical and the care was then taken over by the anesthesia doctor his cardiorespiratory support. MD NUNU Henao/TIA TID: [id number] RECEIPT: [id number] cc: Bebo Fajardo MD, MP Stewart
--- NOTE | 2024-04-05 07:52 | RESUS ---
CODE BLUE ASSESSSMENT History of Events History of Events: 63 year old male brought in by neighbor presents to the ED with chief complaint of abdominal pain and SOB. Patient reports that he has been experiencing diffuse, 10/10 abdominal pain with associated abdominal distention and SOB with exertion for the past month along with nausea and vomiting since yesterday. Patient relays that he has not been seen by a PCP in over a year. Patient states he is currently not able to pass gas. Neighbor notes that the patient called her for help this morning, prompting her to take the patient to the ED for further evaluation. Patient denies any chest pain, dizziness, diarrhea, headache, fever, or chills. PT WAS TRANSFERRED TO OR FOR SURGERY: PERFORATED SIGMOID DIVERTICULITIS WITH INTRAABD ABSCESS PERITONITIS E LAP DRAINAGE OF INTRAABD ABSCESS. WHEN SURGERY WAS COMPLETED PT WAS MOVED TO THE BED BECAME BRADYCARDIC AND LOST PULSES. LYSIS OF ADHESIONS SIGMOID RESECTION, END COLOSTOMY, YANEZ CLOSURE Initial Information Date: Apr 04, 2024 Time: 22:14 Location of Arrest: OR Arrest Witnessed: Yes CPR started initial time: 22:14 CPR started by whom: Hospital Staff Pre-Hospital Care: ACLS Type of arrest: Cardiac, Respiratory, Adult, Witnessed Spontaneous Respirations: No Pulse Present: No Monitoring: ECG, Pulse Oximetry, Apnea, Telemetry Airway Ventilation Breathing at Onset: Apneic O2 Sat by Pulse Oximetry: 0 Oxygen Delivery Method: Mechanical Ventilator Artificial Ventilation: Bag/Endo tube Intubation Size: 7.5 cuffed Intubated by: PREVIOUSLY INTUBATED Intubated orally: Yes Intubated Nasaly: No Tube secured at: 24 Confirmation: Auscultation, Exhaled CO2, Chest X-ray Circulation Circulation : Time: 22:14 Pulse Rate (adult): 0 Blood Pressure Systolic: 0 Blood Pressure Diastolic: 0 Procedure - IV Procedure - IV : IV Side: Left IV Location: Forearm Anterior IV Catheter Type: Saline Lock IV Placed: In Hospital IV Gauge: 22 IV Line Care: Saline Flush Comment PREVIOUSLY PLACED Medications & Response Medications and Responses #1: Medication Time: 22:14 ADULT Medications Given ADULT: Epinephrine 1 mg, Sodium Bacarbinate 50 meq Route of Administration: IV Heart Rate: 0 EKG Rhythm: PEA Blood Pressure Systolic: 0 Blood Pressure Diastolic: 0 Respiratory Rate: 0 O2 Sat by Pulse Oximetry: 0 EKG Rhythm: PEA Comment NO PULSE 2218 Medications and Responses #2: Medication Time: 22:18 ADULT Medications Given ADULT: Epinephrine 1 mg, Calcium Chloride 10 mL Route of Administration: IV EKG Rhythm: PEA Blood Pressure Systolic: 0 Blood Pressure Diastolic: 0 Respiratory Rate: 0 O2 Sat by Pulse Oximetry: 0 EKG Rhythm: PEA Comment NO PULSE AT 2221 Medications and Responses #3: Medication Time: 22:21 ADULT Medications Given ADULT: Epinephrine 1 mg, Atropine 1 mg Route of Administration: IV Heart Rate: 0 EKG Rhythm: PEA Blood Pressure Systolic: 0 Blood Pressure Diastolic: 0 Respiratory Rate: 0 O2 Sat by Pulse Oximetry: 0 EKG Rhythm: PEA Comment PULSE CHECK AT 2222 ROSC, 2224 PEA NO PULSE Medications and Responses #4: Medication Time: 22:24 ADULT Medications Given ADULT: Epinephrine 1 mg, Sodium Bacarbinate 50 meq Route of Administration: IV Heart Rate: 0 EKG Rhythm: PEA Blood Pressure Systolic: 0 Blood Pressure Diastolic: 0 Respiratory Rate: 0 O2 Sat by Pulse Oximetry: 0 EKG Rhythm: Junctional Comment NO PULSE 2227 Medications and Responses #5: Medication Time: 22:27 ADULT Medications Given ADULT: Epinephrine 1 mg, Dopamine 2-10 ug/kg/min Route of Administration: IV Medication Comment: STARTED AT 5 UG/KG/MIN Heart Rate: 0 EKG Rhythm: PEA Blood Pressure Systolic: 0 Blood Pressure Diastolic: 0 Respiratory Rate: 0 O2 Sat by Pulse Oximetry: 0 Comment 2230 NO PULSE Medications and Responses #6: Medication Time: 22:30 ADULT Medications Given ADULT: Epinephrine 1 mg, Sodium Bacarbinate 50 meq, Calcium Chloride 10 mL Route of Administration: IV Heart Rate: 0 EKG Rhythm: PEA Blood Pressure Systolic: 0 Blood Pressure Diastolic: 0 Respiratory Rate: 0 O2 Sat by Pulse Oximetry: 0 EKG Rhythm: PEA Comment PULSE CHECK 2232 ROSC RATE 30S 2235 PT LOST PULSES PRONOUNCED. Pacing Pacer Pads Applied and Pacing: Yes Procedure - NG/OG Tube Procedure - NG/OG Tube : Type of gastric tube placed: OG Gastric Tube Location: Oral Tube Size: 14 GI Tube Secured: Yes Comment PREVIOUSLY PLACED Procedure - Central Venous Cat Comment: PREVIOUSLY PLACED, R. IJ Procedure - Singh Catheter Urine Color: Yellow Comment: PREVIOUSLY PLACED Nurses Notes Bren Coma Scale Eye Opening: None (1) Crosby Coma Scale Verbal: None (1) Crosby Coma Scale Motor: None (1) Glascow Total: 3 Pupil Reaction: Non Reactive EKG Rhythm: Asystole Time Code Ended Time Code Ended: 22:35 Post Arrest Status: Outcome of code: Unsuccessful Patient pronounced by: STEPHEN TECTONOPHYSICIST Time patient pronounced: 22:35 Family notified: Yes Attending called: Yes Code Team Present: STEPHEN TECTONOPHYSICIST, DR DONOVAN, DR CORNELIUS, [facility] RESIDENT, NIGEL SHEPARD HS, LEANNE CHARGE ICU, ROSEANNE GALLOWAY RN, YUSUF RN, JAKE RT. Post Resuscitation Neurologica Pupil Size: 4 Comment: NIGEL FERMIN Apr 05, 2024 07:51
[2024-04-05] MEDS ORDERED: cefTRIAXone 1GM/50ML D5W 50 ML IV SCH (09:00)
== END 2024-04-04 22:35 | DRG 329 ==
LOC: ER 09:16 → OVERFLOW 12:56
PROVIDERS: ADMIT Nurse Practitioner Family; ATTEND Nurse Practitioner Family
PROC: 0D1N0Z4 Bypass Sigmoid Colon to Cutaneous, Open Approach (ICD-10-PCS; 2024-04-04)
PROC: 0DSN0ZZ Reposition Sigmoid Colon, Open Approach (ICD-10-PCS; 2024-04-04)
PROC: 0DNN0ZZ Release Sigmoid Colon, Open Approach (ICD-10-PCS; 2024-04-04)
PROC: 0W9G0ZZ Drainage of Peritoneal Cavity, Open Approach (ICD-10-PCS; 2024-04-04)
PROC: 02HV33Z Insertion of Infusion Device into Superior Vena Cava, Percutaneous Approach (ICD-10-PCS; 2024-04-04)
PROC: 5A12012 Performance of Cardiac Output, Single, Manual (ICD-10-PCS; 2024-04-04)
PROC: 0DTN0ZZ Resection of Sigmoid Colon, Open Approach (ICD-10-PCS; principal; 2024-04-04 19:17)
DX: K57.20 Diverticulitis of large intestine with perforation and abscess without bleeding (principal); I21.4 Non-ST elevation (NSTEMI) myocardial infarction; E87.1 Hypo-osmolality and hyponatremia; N17.9 Acute kidney failure, unspecified; I50.30 Unspecified diastolic (congestive) heart failure; I11.0 Hypertensive heart disease with heart failure; E66.01 Morbid (severe) obesity due to excess calories; I48.91 Unspecified atrial fibrillation; K66.0 Peritoneal adhesions (postprocedural) (postinfection); Z68.38 Body mass index [BMI] 38.0-38.9, adult
CPT/HCPCS: 36415; 36556; 36600; 71045; 74176; 80048; 82247; 82805; 83605; 83690; 83880; 84484; 85007; 85027; 85610; 86850; 86900; 86901; 87040; 87070; 87075; 87077; 87186; 87205; 92950; 93005; 93306; 96365; 96375; 99291; 99292; G0378; J0171; J0330; J0690; J2250; J2405; J3490; J7060